=== PATIENT | female | born 1970 | race Caucasian/White ===

== ENCOUNTER → 2018-04-15 | Outpatient (CLI) | payer OTHER | LOC: FIMAGING 11:33 | PROVIDERS: ATTEND Family Medicine | DX: M25.551 Pain in right hip (principal) ==

== ENCOUNTER 2018-05-18 14:10 | Day surgery (SDC) | payer OTHER ==
--- NOTE | 2018-05-18 15:40 | PDANEPAE ---
ANE History of Present Illness weight loss here for EGD ANE Past Medical History - Cardiovascular History Hx Hypertension: No Hx Arrhythmias: No Hx Chest Pain: No Hx Coronary Artery / Peripheral Vascular Disease: No Hx CHF / Valvular Disease: No Hx Palpitations: Yes Cardiovascular History Comment: palpitations r/t panic attacks and anxiety - Pulmonary History Hx COPD: No Hx Asthma/Reactive Airway Disease: No Hx Recent Upper Respiratory Infection: No Hx Oxygen in Use at Home: No Hx Sleep Apnea: No Sleep Apnea Screening Result - Last Documented: Negative - Neurologic History Hx Cerebrovascular Accident: No Hx Seizures: No Hx Dementia: No - Endocrine History Hx Diabetes: No - Renal History Hx Renal Disorders: Yes Renal History Comment: incontinent- wears pads - Liver History Hx Hepatic Disorders: No - Neurological & Psychiatric Hx Hx Neurological and Psychiatric Disorders: Yes Neurological / Psychiatric History Comment: ptsd. anxiety. panic attacks. bipolar 2. depression - Cancer History Hx Cancer: No - Congenital Disorder History Hx Congenital Disorders: No - GI History Hx Gastrointestinal Disorders: Yes Gastrointestinal History Comment: chronic abd pain. constipation alternating with diarrhea. n/v - Other Health History Other Health History: wears glasses- currently broken. rashes. fibromyalgia - Chronic Pain History Chronic Pain: Yes (fibromyalgia) - Surgical History Prior Surgeries: wisdom teeth extracted ANE Review of Systems Review of Systems: - Exercise capacity METS (RN): 4 METS ANE Patient History - Allergies Allergies/Adverse Reactions: alcohol Allergy (Verified 05/18/18 15:00) Antihistamines - Alkylamine Allergy (Verified 05/18/18 15:00) Benzodiazepines Allergy (Verified 05/18/18 15:00) Other-Enter Comments lidocaine Allergy (Verified 05/18/18 15:00) Other-Enter Comments Opioids - Morphine Analogues Allergy (Verified 05/18/18 15:00) tetracycline Allergy (Verified 05/18/18 15:00) Other-Enter Comments - Home Medications Home medications: home medication list seen and reviewed Home Medications: Amitriptyline HCl 04/29/18 [Last Taken 05/17/18] Escitalopram Oxalate 04/29/18 [Last Taken 05/18/18 12:00] Herbals/Supplements -Info Only 04/29/18 [Last Taken 05/16/18] Prazosin HCl [Minipress 1mg (*)] 04/29/18 [Last Taken 05/17/18] Topiramate [Topamax 25MG (*)] 04/29/18 [Last Taken 05/16/18] Ibuprofen 800 mg PO 05/18/18 [Last Taken 05/18/18 07:00] - NPO status NPO Status: no food or drink >8 hours NPO Since - Liquids (Date): 05/18/18 NPO Since - Liquids (Time): 14:30 NPO Since - Solids (Date): 05/16/18 NPO Since - Solids (Time): 18:00 - Anes Hx Anes Hx: slow to awaken from anesthesia, awareness under anesthesia - Smoking Hx Smoking Status: Heavy smoker - Alcohol Use Alcohol Use: Heavy - Family Anes Hx Family Anes Hx: none Family Hx Anesthesia Complications: unknown ANE Labs/Vital Signs - Vital Signs Blood Pressure: 130/84 Heart Rate: 72 Respiratory Rate: 18 O2 Sat (%): 96 Height: 170.18 cm Weight: 60.781 kg ANE Physical Exam - Airway Neck exam: FROM Mallampati Score: Class 2 Mouth exam: normal dental/mouth exam - Pulmonary Pulmonary: no respiratory distress, clear to auscultation - Cardiovascular Cardiovascular: regular rate and rhythym, no murmur, rub, or gallop - ASA Status ASA Status: III ANE Anesthesia Plan Anesthesia Plan: GA with mask Total IV Anesthesia: Yes
[2018-05-18] MEDS ORDERED: LR 1,000 ML IV ONE (15:41)
[2018-05-18] MEDS ORDERED: PROPOFOL/EMULSION 500 MG/50 ML BOTTLE IV ONE (15:57)
--- NOTE | 2018-05-18 16:03 | PDGENHP ---
History & Physical Chief Complaint: Diarrhea. N/V Pertinent Past, Social, Family History: Chronic diarrhea, N/V. PMH: PTSD, Fibromyalgia. SH: No Tob, ETOH and substance abuse history. FH: negative for GI malignancy Relevant Physical Exam: Anxious. NAD. CTA B/L. RRR without m/r/g. GI soft. NABS. No R/G. No HSM Cardiorespiratory Assessment: ASA III. EGD/Colonoscopy with MAC/IV sedation
--- NOTE | 2018-05-18 16:20 | GIREPORT ---
[facility] Surgical Services - Endoscopy Department Patient Name: Charlotte Chávez Procedure Date: 05/18/2018 4:10 PM Patient Type: Outpatient Attending MD/ ER Physician: Олег Sanford MD Procedure: Upper GI endoscopy Indications: Epigastric abdominal pain, Nausea with vomiting Providers: Олег Sanford MD Medicines: Propofol per Anesthesia Complications: No immediate complications. Description of Procedure: After obtaining informed consent, the endoscope was passed under direct vision. Throughout the procedure, the patient's blood pressure, pulse, and oxygen saturations were monitored continuously. The Endoscope was intro duced through the mouth, and advanced to the second part of duodenum. [facility] endoscopy was accomplished without difficulty. The patient tolerated th e procedure well. Findings: The esophagus was normal. The entire examined stomach was normal. Biopsies were taken with a cold forceps for histology. The duodenal bulb, first portion of the duodenum and second portion of the duodenum were normal. Biopsies for histology were taken with a cold for ceps for evaluation of celiac disease. Estimated Blood Loss: Estimated blood loss: none. Post Op Diagnosis: - Normal esophagus. - Normal stomach. Biopsied. - Normal duodenal bulb, first portion of the duodenum and second portio n of the duodenum. Biopsied. - No endoscopic cause for her chronic symptoms. 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 Recommendation: - Await pathology results. - Perform a colonoscopy today. - Return to GI clinic as previously scheduled. - Continue present medications. - Resume previous diet. - Patient has a contact number available for emergencies. The signs and symptoms of potential delayed complications were discussed with the pat ient. Return to normal activities tomorrow. Written discharge instructions we re provided to the patient. - Thank you for allowing me to be involved in the care of your patient. Attending Participation: I personally performed the entire procedure without the assistance of a fellow, resident or surg ical health care assistant. Олег Sanford MD Олег Sanford MD 05/18/2018 4:20:14 PM This report has been signed electronicallyDavid MD Claribel Number of Addenda: 0 Note Initiated On: 05/18/2018 4:10 PM [email or web address]
[2018-05-18] MEDS ORDERED: NALOXONE HCL 0.4 MG/ML INJ IVP PRN (16:21)
--- NOTE | 2018-05-18 16:42 | GIREPORT ---
[facility] Surgical Services - Endoscopy Department Patient Name: Charlotte Chávez Procedure Date: 05/18/2018 4:17 PM Patient Type: Outpatient Attending MD/ ER Physician: Олег Sanford MD Procedure: Colonoscopy Indications: Generalized abdominal pain, Chronic diarrhea, Change in bowel habits Providers: Олег Sanford MD Medicines: Propofol per Anesthesia Complications: No immediate complications. Description of Procedure: After obtaining informed consent, the scope was passed under direct vis ion. Throughout the procedure, the patient's blood pressure, pulse, and oxyg en saturations were monitored continuously. The Colonoscope was introduced through the anus and advanced to the cecum, identified by appendiceal orifice and ileocecal valve. The colonoscopy was performed without difficulty. The patient tolerated the procedure well. The quality of th e bowel preparation was good. The ileocecal valve, appendiceal orifice, a nd rectum were photographed. Findings: The perianal and digital rectal examinations were normal. Pertinent negatives include normal sphincter tone and no palpable rectal lesions. The area from rectum to cecum appeared normal. Biopsies for histology w ere taken with a cold forceps from the right colon and left colon for evalu ation of microscopic colitis. Estimated Blood Loss: Estimated blood loss: none. Post Op Diagnosis: - The rectum to cecum is normal. Biopsied. Recommendation: - Await pathology results. - Repeat colonoscopy in 10 years for screening purposes. - Return to referring physician as previously scheduled. - Resume previous diet. - Continue present medications. - Patient has a contact number available for emergencies. The signs and symptoms of potential delayed complications were discussed with the pat ient. Return to normal activities tomorrow. Written discharge instructions we re provided to the patient. - Thank you for allowing me to be involved in the care of your patient. Attending Participation: I personally performed the entire procedure without the assistance of a fellow, resident or surg ical litigation assistant. Олег Sanford MD Олег Sanford MD 05/18/2018 4:41:41 PM This report has been signed electronicallyDavid MD Claribel Number of Addenda: 0 Note Initiated On: 05/18/2018 4:17 PM Total Procedure Duration Time 0 hours 15 minutes 58 seconds [email or web address]
--- NOTE | 2018-05-18 16:43 | POSTANESTH ---
Post Anesthetic Evaluation Cardiovascular Status: Normal, Stable, Similar to Pre-Op Cond Respiratory Status: Normal, Stable, Similar to Pre-op Cond. Level of Consciousness/Mental Status: Moderately Sleepy Pain Control: Adequate, Prn Tx Ordered Nausea/Vomiting Control: Adequate, Prn Tx Ordered Complications Possibly Related to Anesthesia: None Noted
[2018-05-18 19:09] VITALS: BP 121/85
== END 2018-05-18 18:25 | disposition home or self-care (01) ==
LOC: FSGY 14:10
PROVIDERS: ATTEND Internal Medicine Gastroenterology
DX: K29.50 Unspecified chronic gastritis without bleeding (principal); F43.10 Post-traumatic stress disorder, unspecified; M79.7 Fibromyalgia; F10.11 Alcohol abuse, in remission
CPT/HCPCS: J2704